=== PATIENT | male | born 1955 | race Caucasian/White ===

== ENCOUNTER → 2019-03-18 | Outpatient (CLI) | payer MEDICARE, OTHER ==
--- NOTE | 2019-03-18 19:57 | DIREP ---
PROCEDURE:MRI SPINE LUMBAR W/O COMPARISON:None. INDICATIONS:WEDGE COMPRESSION OF L2 AND L4 TECHNIQUE:A comprehensive examination was performed utilizing a variety of imaging planes and imaging parameters to optimize visualization of suspected pathology. Images were performed without intravenous gadolinium contrast. FINDINGS: ALIGNMENT:Normal. VERTEBRA:Chronic L2 compression fracture with 75% height loss centrally. There is acute L4 compression fracture with transverse fracture lines extending to the anterior and posterior cortex. Minimal retropulsion. CORD/CAUDA EQUINA:Normal size, contour, and signal intensity. PARASPINAL AREA:Normal with no visible mass. OTHER:None. LUMBAR DISC LEVELS T12-L1:No significant disc/facet abnormality, spinal stenosis, or foraminal stenosis. L1-L2:Mild retropulsion from the posterior superior aspect of L2. Mild concomitant facet disease. Minimal bilateral neural foraminal narrowing. Minimal spinal canal narrowing. L2-L3:Mild bilateral facet disease with circumferential disc bulge. Mild bilateral neural foraminal narrowing. Minimal spinal canal narrowing. L3-L4:Mild bilateral facet disease with broad-based posterior disc bulge. Mild bilateral neural foraminal narrowing. L4-L5:Mild facet arthropathy without disc bulge or high-grade spinal canal/neural foraminal narrowing. L5-S1:Minimal bilateral facet disease with small posterior broad-based disc bulge. Moderate bilateral neural foraminal narrowing. Minimal spinal canal narrowing. CONCLUSION: 1. Acute compression fracture of L4 with 50% height loss centrally. There is a transverse fracture line which disrupts the anterior and posterior cortices. However, there is minimal retropulsion 2. Chronic compression fracture of L2. 3. Multilevel degenerative changes otherwise as detailed above. Dictated by: Yunier Herrera DO on 03/18/2019 at 07:50 PM
== END | disposition home or self-care (01) ==
LOC: RAD 12:05
PROVIDERS: ATTEND Emergency Medicine
DX: S32.020D Wedge compression fracture of second lumbar vertebra, subsequent encounter for fracture with routine healing (principal); M47.816 Spondylosis without myelopathy or radiculopathy, lumbar region; X58.XXXD Exposure to other specified factors, subsequent encounter
CPT/HCPCS: 36415; 72148; 82565